=== PATIENT | female | born 1995 | race Two or more races ===

== ENCOUNTER 2022-07-30 23:01 | Emergency (ER) | payer MEDICAID ==
[~2022-07-30] VITALS: Ht 162.6 cm; Wt 81.8 kg
[2022-07-31 04:40] VITALS: BP 103/71
[2022-07-31] MEDS ORDERED: AMOX-277 PO (05:28)
[2022-07-31] MEDS ORDERED: PRED20TA2 PO (05:28)
[2022-07-31] MEDS ORDERED: ACET-1158 PO (05:28)
[2022-07-31] MEDS ORDERED: methylPREDNISolone SOD SUCC 125 MG/2 ML VL IM ONE (05:30)
== END 2022-07-31 06:46 | disposition home or self-care (01) ==
LOC: ER 23:01
DX: J06.9 Acute upper respiratory infection, unspecified (principal); I88.9 Nonspecific lymphadenitis, unspecified; Z79.2 Long term (current) use of antibiotics; Z79.899 Other long term (current) drug therapy
CPT/HCPCS: 87070; 87880; 96372; 99283; J2930

== ENCOUNTER 2025-04-30 06:15 | Emergency (ER) | payer MEDICAID ==
[~2025-04-30] VITALS: Ht 162.6 cm; Wt 78.2 kg
[~2025-04-30 06:15] MED LIST: ACET500T58 PO; AMOX875T4 PO; PRED20TA2 PO
[2025-04-30 06:21] VITALS: BP 112/73; PULSE 79; RESP 18; TEMP 98.9; O2SAT 97
--- NOTE | 2025-04-30 07:00 | ED.PDOC ---
Musculoskeletal HPI Comments A 29 YEAR-OLD FEMALE PRESENTS TO THE ED VIA WHEELCHAIR WITH A CHIEF COMPLAINT OF LEFT ANKLE SWELLING AND PAIN S/P FALL YESTERDAY NIGHT. WALKING AND STANDING INCREASES LEFT ANKLE PAIN. PATIENT HAS NO FURTHER COMPLAINTS AT THIS TIME. PATIENT DENIES THIS HAPPENING BEFORE AND FURTHER DENIES ASSOCIATED SYMPTOMS OF FEVER, CHILLS, DIZZINESS, MIGRAINE, OR N/V/D. NO OTHER SYMPTOMS REPORTED AT THIS TIME OF CARE. Chief Complaint: Lower Extremity Time Seen by MD: 06:51 Reviewed Notes: Nurses Notes, Medications, Allergies Allergies: Coded Allergies: NO KNOWN ALLERGIES (Unverified , 07/30/22) Home Meds Active Scripts Ibuprofen (Ibuprofen) 800 Mg Tab, 1 TAB PO TID, #30 TAB Prov:ANI BROOKS 04/30/25 Acetaminophen (Acetaminophen) 500 Mg Tab, 500 MG PO QIDP, #30 TAB 0 Refills Prov:TRINIDAD COMBS 07/31/22 Prednisone (Prednisone) 20 Mg Tab, 20 MG PO BID for 5 Days, #10 MG 0 Refills Prov:TRINIDAD COMBS 07/31/22 Amoxicillin & Pot Clavulanate (Amoxicillin/Potassium Cla) 875 Mg Tab, 1 TAB PO BID for 7 Days, #14 TAB 0 Refills Prov:TRINIDAD COMBS 07/31/22 Information Source: Patient Mode of Arrival: Wheelchair Location: Left Extremity Location: Ankle Timing: Days Prehospital treatment: None Severity: Moderate Able to Move Extremity: No Bear Weight: Limited Pain: Moderate Hand Dominance: Right Circumstances: Fall Onset of Symptoms: After Trauma Symptoms: Swelling, Pain DVT Risk Factors: NONE Last Tetanus: UTD Associated signs and symptoms: Ankle pain, Foot pain Past Medical History PAST MEDICAL HISTORY: Denies Surgical History: Denies all surgeries CABIN AGENT History: No Pertinent CABIN AGENT History Family History Family History: Unknown Social History Smoker: Non-Smoker Alcohol: Denies ETOH Use Drugs: Denies Drug Use Lives In: Home Constitutional: denies: chills, diaphoresis, fatigue, fever, malaise, sweats, weakness, others EENTM: denies: blurred vision, double vision, ear bleeding, ear discharge, ear drainage, ear pain, ear ringing, eye pain, eye redness, hearing loss, mouth pain, mouth swelling, nasal discharge, nose bleeding, nose congestion, nose pain, photophobia, tearing, throat pain, throat swelling, voice changes, others Respiratory: denies: cough, hemoptysis, orthopnea, SOB at rest, shortness of breath, SOB with excertion, stridor, wheezing, others Cardiovascular: denies: chest pain, dizzy spells, diaphoresis, Dyspnea on exertion, edema, irregular heart beat, left arm pain, lightheadedness, palpit ations, PND, syncope, others Gastrointestinal: denies: abdomen distended, abdominal pain, blood streaked b owels, constipated, diarrhea, dysphagia, difficulty swallowing, hematemesis, melena, nausea, poor appetite, poor fluid intake, rectal bleeding, rectal pain, vomiting, others Genitourinary: denies: abnormal vagina bleeding, burning, dyspareunia, dysuria, flank pain, frequency, hematuria, incontinence, pain, , vagina discharge, urgency, others Neurological: denies: dizziness, fainting, headache, left sided numbness, left sided weakness, numbness, paresthesia, pre-existing deficit, right sided numbness, right sided weakness, seizure, speech problems, tingling, tremors, weakness, others Musculoskeletal: reports: joint pain, joint swelling, others (L FOOT PAIN WITH SWELLING ); denies: back pain, gout, muscle pain, muscle stiffness, neck pain Integumetry: denies: bruises, change in color, change in hair/nails, dryness, laceration, lesions, lumps, rash, wounds, others Allergic/Immunocompromised: denies: Difficulty Healing, Frequent Infections, Hives, Itching, others Hematologic/Lymphatic: denies: anemia, blood clots, easy bleeding, easy bruising, swollen glands, others Endocrine: denies: excessive hunger, excessive sweating, excessive thirst, excessive urination, flushing, intolerance to cold, intolerance to heat, unexplained weight gain, unexplained weight loss, others Psychiatric: denies: anxiety, bipolar disorder, depression, hopeless, panic disorder, schizophrenia, sleepless, suicidal, others All Other Systems: Reviewed and Negative Physical Exam General Appearance: No Apparent Distress, Normal HEENT: Normal ENT Inspection, PERRL/EOMI, Pharynx Normal, TMs Normal Neck: Full Range of Motion, Non-Tender, Normal, Normal Inspection Respiratory: Chest Non-Tender, Lungs Clear, No Accessory Muscle Use, No Respiratory Distress, Normal Breath Sounds Cardiovascular: No Edema, No JVD, No Murmur, No Gallop, Normal Peripheral Pulses, Regular Rate/Rhythm Breast Exam: Deferred Gastrointestinal: No Organomegaly, Non Tender, No Pulsatile Mass, Normal Bowel Sounds, Soft Genitalia: Deferred Pelvic: Deferred Rectal: Deferred Extremities: Decreased range of motion, No calf tenderness, Normal capillary refill, No pedal edema, Swelling (TENDERNESS AND SWELLING ON LEFT LATERAL ANKLE, NO BONY TENDERNESS AND DEFORMITY. ), Tender (AND MILD SWELLING ON LEFT LATERAL ANKLE, NO DEFORMITY. ) Musculoskeletal : Apperance: Normal Neurologic: Alert, cardio clinician II-XII nml as Tested, No Motor Deficits, Normal Affect, Normal Mood, No Sensory Deficits Cerebellar Function: Normal Reflexes: Normal Skin: Dry, Normal Color, Warm Peripheral Pulses: 2+ carotid (R), 2+ carotid (L), 2+ dorsalis pedis (R), 2+ dorsalis pedis (L) Lymphatic: No Adenopathy Was a procedure done? Was a procedure done?: No Differential Diagnosis EXT Differential Diagnosis: Fracture, Sprain, Contusion, Strain, Bursitis X-Ray, Labs, Meds, VS Vital Signs Date Time Temp Pulse Resp B/P (MAP) Pulse Ox O2 Delivery O2 Flow Rate FiO2 04/30/25 06:53 Room Air 04/30/25 06:21 98.9 79 18 112/73 97 98.9 X-Ray, Labs, Meds, VS Comment EXTERNAL MEDICAL RECORDS REVIEWED: [NONE] INDEPENDENT HISTORIANS: [NONE] SOCIAL DETERMINANTS OF HEALTH: [NONE] LABS ORDERED: NONE REVIEWED AND INTERPRETED RESULTS: NONE IMAGING ORDERED: L ANKLE XRAY - NO FRACTURE OR DISLOCATION. READ BY ME. PENDING RADIOLOGY READING. TREATMENTS ORDERED: MOTRIN 800MG PO, AC WRAPPED AND CRUTCHES PROCEDURES PERFORMED: NONE CRITICAL CARE TIME: NONE I HAVE DISCUSSED THE PATIENT WITH THE ATTENDING PHYSICIAN DR. STOUT AND HE AGREES WITH THE PATIENT'S PLAN OF CARE AND DISPOSITION. BASED ON HISTORY OF PRESENT ILLNESS, AND PHYSICAL EXAM, PATIENT WILL BE DISCHARGED HOME. DISCUSSED PLAN FOR DISCHARGE HOME WITH RX IBUPROF[facility]. MEDICATION WARNINGS GIVEN. SHARED DECISION MAKING: DISCUSSED WITH PATIENT THAT THEIR WORKUP WAS NORMAL. PA SHREYAS INSTRUCTED TO FOLLOW UP WITH PRIMARY CARE PROVIDER IN 1-2 DAYS FOR RE- EVALUATION OF SYMPTOMS. PATIENT VERBALIZES UNDERSTANDING TO RETURN TO ED FOR NEW OR WORSENING SYMPTOMS OR IF FOLLOW UP WITH PCP CANNOT BE OBTAINED. PATIENT FEELS COMFORTABLE GOING HOME AT THIS TIME. ALL QUESTIONS ADDRESSED AT TIME OF DISCHARGE. Images Reviewed?: Images reviewed and evaluated by me Time of 1ST Reevaluation: 07:20 Reevaluation 1ST: Improved Patient Education/Counseling: Diagnosis, Treatment, Need For Follow Up Family Education/Counseling: Diagnosis, Treatment, No Family Present Medical Screening: No EMC Exist At This Time Departure 1 Departure Time of Disposition: 07:20 Impression: Primary Impression: Sprain of left ankle Qualified Codes: S93.402A - Sprain of unspecified ligament of left ankle, initial encounter Disposition: HOME / SELF CARE / HOMELESS Condition: Stable Additional Instructions: FOLLOW-UP WITH PCP IN 1 TO 2 DAYS. TAKE MEDICATIONS PRESCRIBED. RETURN TO ED FOR ANY NEW OR WORSENING SYMPTOMS. e-Prescriptions Ibuprofen (Ibuprofen) 800 Mg Tab 1 TAB PO TID, #30 TAB Prov: ANI BROOKS 04/30/25 Discharged With: Self, Spouse Critical Care Note Critical Care Time?: No Stability Stability form required: No Heart Score Heart Score: Heart Score Response (Comments) Value History N/A 0 EKG N/A 0 Age N/A 0 Risk Factors N/A 0 Troponin N/A 0 Total 0 I personally scribed for ANI BROOKS ([email or web address]) on 04/30/25 at 07:00. Electronically submitted by Joanne Lopez ([email or web address]). ANI BROOKS Apr 30, 2025 07:00
[2025-04-30] MEDS ORDERED: IBUP-1456 PO (07:01)
[2025-04-30] MEDS: IBUPROFEN 800 MG TAB PO ONE (07:12)
--- NOTE | 2025-04-30 07:31 | DVH ---
XY L ANKLE 3 VIEW, INDICATION: TRIPPED AND FELL TECHNICAL DATA:Frontal , oblique and lateral views were obtained of the left ankle. COMPARISON: None FINDINGS: No fracture is identified. Joint spaces are maintained. Alignment is anatomic. Soft tissues are swo llen. IMPRESSION: No acute fracture or dislocation of the left ankle.
== END 2025-04-30 07:17 | disposition home or self-care (01) ==
LOC: ER 06:15
DX: S93.402A Sprain of unspecified ligament of left ankle, initial encounter (principal); W19.XXXA Unspecified fall, initial encounter; Y93.89 Activity, other specified; Y92.89 Other specified places as the place of occurrence of the external cause; Y99.8 Other external cause status
CPT/HCPCS: 73610